=== PATIENT | male | born 1960 | race Hispanic/Latino ===

== ENCOUNTER → 2024-10-05 | Outpatient (REF) | payer BC ==
[~2024-10-05] MED LIST: ASPIRIN81 MG PO; ATORVASTATIN CA10 MG PO; LISINOPRIL10 MG PO; METOPROLOL TART25 MG PO; OZEMPIC2 MG/0.75; SYNJARDY 5-1,01 EACH PO; TRESIBA FL100 UNIT/1 SQ
== END ==
LOC: RAD 08:00 → EDSTATUS 10-13 10:30
PROVIDERS: ATTEND Internal Medicine Gastroenterology
DX: Z01.818 Encounter for other preprocedural examination (principal); Z12.11 Encounter for screening for malignant neoplasm of colon
CPT/HCPCS: 93005

== ENCOUNTER → 2024-11-10 | Day surgery (SDC) | payer BC ==
[~2024-11-10] MED LIST changes: +LACTATED RINGER'S 1,000 ML ONE; +LIDOCAINE HCL 2% LOCAL INJ 5 ML SDV VIAL INJ ONE; +PROPOFOL IV EMULSION 10 MG/ML 20 ML VIAL ONE
[2024-11-10 08:58] VITALS: TEMP 97.3
[2024-11-10 09:30] VITALS: BP 108/78; PULSE 88; RESP 18; O2SAT 97
== END | disposition home or self-care (01) ==
LOC: OR 06:20
PROVIDERS: ATTEND Internal Medicine Gastroenterology
DX: Z12.11 Encounter for screening for malignant neoplasm of colon (principal); D12.4 Benign neoplasm of descending colon; D12.8 Benign neoplasm of rectum; K59.00 Constipation, unspecified; K64.8 Other hemorrhoids; E11.9 Type 2 diabetes mellitus without complications; I10 Essential (primary) hypertension; E78.5 Hyperlipidemia, unspecified; E66.01 Morbid (severe) obesity due to excess calories; Z79.82 Long term (current) use of aspirin; Z79.4 Long term (current) use of insulin; Z79.85 Long-term (current) use of injectable non-insulin antidiabetic drugs; Z79.84 Long term (current) use of oral hypoglycemic drugs; Z79.899 Other long term (current) drug therapy
CPT/HCPCS: 36415; 45378; 45385; 82948; J2003